=== PATIENT | male | born 1945 | race Caucasian/White ===

== ENCOUNTER 2016-12-23 11:16 | Emergency (ER) | payer MEDICARE, OTHER ==
[2016-12-23 11:27] VITALS: O2SAT 99; BMI 25.0
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
--- NOTE | 2016-12-23 15:06 | MRI ---
PROCEDURE: MRI BRAIN WITHOUT CONTRAST HISTORY: had injury, blurry vision COMPARISON: Noncontrast head CT from 06/26/2015 TECHNIQUE: Multiplanar, multisequence MR images of the brain were obtained without intravenous contrast enhancement. FINDINGS: HEMORRHAGE: None DWI: No evidence of an acute or early subacute infarction. BRAIN PARENCHYMA: There are mild chronic microangiopathic changes. There is no mass, mass effect or abnormal extra-axial fluid collection. The midline sagittal structures are normal. There is no territorial infarction. VENTRICLES: There is moderate age-related global parenchymal volume loss and proportionate enlargement of the ventricles and cortical sulci. CRANIUM: There is normal bone marrow signal pattern. ORBITS: Grossly unremarkable. PARANASAL SINUSES/MASTOIDS: Predominantly clear. VASCULAR SYSTEM: There are normal signal voids in the larger intracranial arteries. OTHER FINDINGS: None. IMPRESSION: 1. No acute intracranial abnormality. 2. Mild chronic microangiopathic changes and moderate age-related global parenchymal volume loss.
[2016-12-23 15:26] VITALS: BP 150/85; PULSE 76; RESP 16; TEMP 98.7
== END 2016-12-23 15:24 | disposition home or self-care (01) ==
LOC: C.ER 11:16
DX: S09.90XA Unspecified injury of head, initial encounter (principal); Y09 Assault by unspecified means; H53.8 Other visual disturbances; I10 Essential (primary) hypertension; E78.00 Pure hypercholesterolemia, unspecified

== ENCOUNTER 2017-03-27 07:46 | Emergency (ER) | payer MEDICARE, OTHER ==
[2017-03-27 07:47] VITALS: BMI 25.0
[2017-03-27 07:54] VITALS: RESP 18; O2SAT 100
[2017-03-27] MEDS ORDERED: Bacitracin Ointment 30 GM TUBE TOP STA (08:10)
[2017-03-27] MEDS ORDERED: Bacitracin 500 Units/gm Oint Foilpak UD ONE (08:19)
--- NOTE | 2017-03-27 08:52 | C.PDOC ---
History Of Present Illness 71 y/o male presents to ED with complaints of left leg pain since yesterday and right toe pain with associated swelling for 1 week. Patient states yesterday around 8am while at work his leg was caught in a "machine." He continued to work but pain persisted which prompted visit to ED today. Denies trauma to the toe, change in sensation, history of gout, fever or any other complaints at this time. Patient is not UTD with Tetanus vaccine. Time Seen by Provider: 03/27/17 07:52 Chief Complaint (Nursing): Lower Extremity Problem/Injury History Per: Patient History/Exam Limitations: no limitations Onset/Duration Of Symptoms: Days Current Symptoms Are (Timing): Still Present Past Medical History Reviewed: Historical Data, Nursing Documentation, Vital Signs Vital Signs: Last Vital Signs Temp 97.8 F 03/27/17 11:10 Pulse 69 03/27/17 11:10 Resp 18 03/27/17 11:10 BP 143/82 03/27/17 11:10 Pulse Ox 100 03/27/17 15:24 - Medical History PMH: Anxiety, Depression, HTN, Hypercholesterolemia Surgical History: Back Surgery Family History: States: No Known Family Hx - Social History Hx Tobacco Use: No Hx Alcohol Use: No (occasional) Hx Substance Use: No - Immunization History Hx Tetanus Toxoid Vaccination: No Hx Influenza Vaccination: No Hx Pneumococcal Vaccination: No Review Of Systems Constitutional: Negative for: Fever, Chills Musculoskeletal: Positive for: Leg Pain, Foot Pain Skin: Negative for: Rash Neurological: Negative for: Weakness, Numbness Physical Exam - Physical Exam Appears: Non-toxic, No Acute Distress Skin: Warm, Dry, Other (Puncture wound to left posterior thigh w/surrounding abrasion) Head: Atraumatic, Normacephalic Eye(s): bilateral: Normal Inspection, EOMI Nose: Normal Oral Mucosa: Moist Neck: Normal ROM, Supple Chest: Symmetrical Respiratory: No Accessory Muscle Use Extremity: Tenderness (To left distal femur and right great toe), No Calf Tenderness, Capillary Refill (<2 sec), No Deformity, Swelling ((+) swelling to left proximal medial knee. (+) Swelling and Erythema to right great toe with (+ ) 0.5 blood blister (+) onychomycosis) Pulses: Left Dorsalis Pedis: Normal, Right Dorsalis Pedis: Normal Neurological/Psych: Oriented x3, Normal Motor, Normal Sensation Gait: Steady ED Course And Treatment O2 Sat by Pulse Oximetry: 100 (RA) Pulse Ox Interpretation: Normal - Other Rad Foot Rt toe X-Ray: Viewed By Me, Read By Radiologist Interpretation: PROCEDURE: Radiographs of the right great toe. TECHNIQUE:: AP radiograph of the right foot, with oblique and lateral view of the right great toe. COMPARISON: None. FINDINGS: BONES: Subcortical tiny cysts accentuated medial 1st interphalangeal joint. Concomitant small erosion 1st proximal phalanx here possible. Bordering faint juxta articular calcification. No fracture. JOINTS: First metatarsal-phalangeal and 1st interphalangeal joint arthrosis. SOFT TISSUES: Normal. OTHER FINDINGS: Clinodactyly 4th and 5th digits. IMPRESSION: No fracture or dislocation. Cystic and possibly erosive arthrosis - 1st digit Left knee X-Ray: Viewed By Me, Read By Radiologist Interpretation: PROCEDURE: Left Knee Radiographs. HISTORY: COMPARISON: Bilateral knee radiographs performed 08/28/15. FINDINGS: BONES: No acute displaced fracture. JOINTS: No dislocation. Chondrocalcinosis, lateral compartment. JOINT EFFUSION: Small to moderate suprapatellar joint effusion. OTHER FINDINGS: Vascular calcifications. IMPRESSION: Small to moderate suprapatellar joint effusion. No acute displaced fracture identified. If symptoms persist, or if there is continued clinical concern, x-ray follow-up in 7-10 days should be considered. Left femur X-Ray: Viewed By Me, Read By Radiologist Interpretation: Indication: Trauma. Left femur radiographs. Comparison: None available. Findings: No acute displaced fracture. No dislocation. Vascular calcifications. Soft tissues appear otherwise unremarkable. No evidence of radiopaque foreign body. Degenerative changes. Chondrocalcinosis, medial lateral compartments. Impression: No acute displaced fracture identified If symptoms persist or if there is continued clinical concern, x-ray follow-up in 7 -10 days should be considered. Progress Note: Femur and Knee xray ordered, Tetanus vaccine administered, Bacitracin apllied,. Podiatry, Dr Yeh, latriciauted pt at bedside who recommends treatment with colchine, NSAIDS, and antibiotics. On re evaluation patient pain is improved. Patient discussed xray results, knee brace applied by RN and pt discharged with papers on Gout and possible risks of infection for puncture wound. Patient advised to follow up with ortho in 1-2 days for wound check or return to ER if symptoms persist or worsen. Disposition - Disposition Referrals: [facility] [Outside] Disposition: HOME/ ROUTINE Disposition Time: 10:03 Condition: STABLE Additional Instructions: Vaya a tory mdico o la clnica en 1-3 darnell sin falta, para mas evaluacin. [place] los medicamentos rhonda indicado. Volver a la kate de emergencia en cualquier momento si los sntomas persisten o empeoran. 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 - Scribe Statement The provider has reviewed the documentation as recorded by the Scribmartin [place] All medical record entries made by the Jean were at my direction and personally dictated by me. I have reviewed the chart and agree that the record accurately reflects my personal performance of the history, physical exam, medical decision making, and the department course for this patient. I have also personally directed, reviewed, and agree with the discharge instructions and disposition.
--- NOTE | 2017-03-27 09:07 | RAD ---
PROCEDURE: Radiographs of the right great toe. TECHNIQUE:: AP radiograph of the right foot, with oblique and lateral view of the right great toe. COMPARISON: None. FINDINGS: BONES: Subcortical tiny cysts accentuated medial 1st interphalangeal joint. Concomitant small erosion 1st proximal phalanx here possible. Bordering faint juxta articular calcification. No fracture. JOINTS: First metatarsal-phalangeal and 1st interphalangeal joint arthrosis. SOFT TISSUES: Normal. OTHER FINDINGS: Clinodactyly 4th and 5th digits. IMPRESSION: No fracture or dislocation Cystic and possibly erosive arthrosis - 1st digit
--- NOTE | 2017-03-27 09:14 | RAD ---
PROCEDURE: Left Knee Radiographs. HISTORY: COMPARISON: Bilateral knee radiographs performed 08/28/15 FINDINGS: BONES: No acute displaced fracture. JOINTS: No dislocation. Chondrocalcinosis, lateral compartment. JOINT EFFUSION: Small to moderate suprapatellar joint effusion. OTHER FINDINGS: Vascular calcifications. IMPRESSION: Small to moderate suprapatellar joint effusion. No acute displaced fracture identified. If symptoms persist, or if there is continued clinical concern, x-ray follow-up in 7-10 days should be considered.
--- NOTE | 2017-03-27 09:25 | RAD ---
Indication: Trauma Left femur radiographs Comparison: None available Findings: No acute displaced fracture. No dislocation. Vascular calcifications. Soft tissues appear otherwise unremarkable. No evidence of radiopaque foreign body. Degenerative changes. Chondrocalcinosis, medial lateral compartments. Impression: No acute displaced fracture identified If symptoms persist or if there is continued clinical concern, x-ray follow-up in 7-10 days should be considered.
--- NOTE | 2017-03-27 09:32 | CP.PCM.CON ---
History of Present Illness - History of Present Illness History of Present Illness: Podiatry Consult Note- Dr. Zepeda 71 yo male patient seen in the ED concerning painful left great toe. Pt says he has noticed pain, swelling and redness to the toe for 1 week in duration. Rates the pain as a 6-7/10 and it bothers him when walking. Denies any numbness or tingling to the lower extremity. Denies any injury to the toe, denies any recent changes in shoe gear or activity. Denies any episodes of this happening in the past. Denies any history of diabetes or gout. Denies taking any pain medication at home. Also complains of fungal toenails which he has had for a while. Denies f/n/v/c/sob/cp/weakness or dizziness at this time. PMH: HTN ALL: PCN Review of Systems - Review of Systems Review of Systems: all systems reviewed and found neg outside HPI Past Patient History - Infectious Disease Hx of Infectious Diseases: None - Past Social History Smoking Status: Never Smoked - CARDIAC Hx Hypercholesterolemia: Yes Hx Hypertension: Yes - PULMONARY Hx Tuberculosis: No - NEUROLOGICAL Hx Seizures: No - HEMATOLOGICAL/ONCOLOGICAL Hx Human Immunodeficiency Virus (HIV): No - MUSCULOSKELETAL/RHEUMATOLOGICAL Hx Falls: No - GENITOURINARY/GYNECOLOGICAL Hx Sexually Transmitted Disorders: No - PSYCHIATRIC Hx Anxiety: Yes Hx Depression: Yes Hx Substance Use: No - SURGICAL HISTORY Hx Surgeries: Yes Other/Comment: herniated disc surgery - ANESTHESIA Hx Anesthesia: Yes Hx Anesthesia Reactions: No Meds Home Medications: Home Medication List Medication Instructions Recorded Confirmed Type Bacitracin OINT 1 applic TP BID #1 tube 03/27/17 Rx Colchicine [Colcrys] 0.6 mg PO DAILY #5 tablet 03/27/17 Rx Doxycycline Hyclate [Doryx] 100 mg PO BID #14 cap 03/27/17 Rx Indomethacin [Indocin] 25 mg PO TID #20 cap 03/27/17 Rx Allergies/Adverse Reactions: Allergies Allergy/AdvReac Type Severity Reaction Status Date / Time Penicillins Allergy RASH Verified 03/27/17 07:51 Physical Exam - Constitutional Appears: Non-toxic, No Acute Distress - Extremities Exam Additional comments: RLE focused exam: VASC- DP/PT pulses are fully palpable (2/4), skin temp is increased over hallux at level of IPJ, cap refill < 3 sec to all digits, non-pitting edema is noted circumferentially to hallux NEURO- gross and protective pedal sensation is intact DERM- small superficial blister noted to dorsal-lat aspect of hallux IPJ (no fluctuance, appears sanguinous in nature), erythema is noted circumferentially to hallux IPJ (no proximal streaking), thickened dystrophic hallux nail noted, no open wounds or lesions appreciated ORTHO- tenderness noted to palpation of medial aspect of hallux IPJ and with ROM , non-tender to palpation or ROM of 1st MTPJ - Neurological Exam Neurological exam: Alert, CN II-XII Intact, Oriented x3 - Psychiatric Exam Psychiatric exam: Normal Affect, Normal Mood Results - Vital Signs Recent Vital Signs: Last Vital Signs Temp 98 F 03/27/17 07:51 Pulse 90 03/27/17 07:51 Resp 18 03/27/17 07:51 BP 144/89 03/27/17 07:51 Pulse Ox 100 03/27/17 09:10 Assessment & Plan - Assessment and Plan (Free Text) Assessment: 71 yo male patient with painful right hallux most likely 2/2 gout (cannot r/o infection) Plan: Pt S&E in ED Plan discussed with attending Dr. Zepeda in detail Right foot x-rays reviewed: small erosive changes noted to medial aspect of hallux proximal phalanx and medial aspect of 1st metatarsal head, as well as distal phalanx of hallux, os interphalangeus is noted sub-IPJ of hallux Uric acid level: 6.1 Recommend anti-inflammatory, colchicine 0.6mg po once daily x 5days, po antibiotics Stable as per podiatry Pt may follow up at [facility] pod[facility]ry clinic ([facility]) with Dr. Zepeda for further foot care prn
[2017-03-27 11:11] VITALS: BP 143/82; PULSE 69; TEMP 97.8
== END 2017-03-27 11:48 | disposition home or self-care (01) ==
LOC: C.ER 07:46
DX: S71.132A Puncture wound without foreign body, left thigh, initial encounter (principal); S80.02XA Contusion of left knee, initial encounter; W31.9XXA Contact with unspecified machinery, initial encounter; Y92.89 Other specified places as the place of occurrence of the external cause; Y99.0 Civilian activity done for income or pay; M10.9 Gout, unspecified

== ENCOUNTER 2017-07-10 10:49 | Emergency (ER) | payer OTHER ==
[2017-07-10 10:49] VITALS: BMI 25.0
[2017-07-10 11:17] LABS: BASO # 0.1 K/uL (0.0-0.2); BASO % 1.6 % (0.0-2.0); EOS # 0.1 K/uL (0.0-0.7); HEMOGLOBIN 13.9 g/dL (12.0-18.0); LYMPH # 2.1 K/uL (1.0-4.3); LYMPH % 42.9 % (20.0-40.0); MEAN CELL VOLUME 91.1 fL (80.0-94.0); MEAN CORPUSCULAR HEMOGLOBIN 31.4 pg (27.0-31.0); MEAN CORPUSCULAR HGB CONC 34.5 g/dL (33.0-37.0); MEAN PLATELET VOLUME 6.5 fL (7.2-11.7); MONO # 0.5 K/uL (0.0-0.8); MONO % 10.4 % (0.0-10.0); NEUT # 2.1 K/uL (1.8-7.0); NEUT % 42.1 % (50.0-75.0); RBC 4.42 Mil/uL (4.40-5.90); RED CELL DISTRIBUTION WIDTH 15.3 % (11.5-14.5); WHITE BLOOD COUNT 4.9 K/uL (4.8-10.8)
[2017-07-10 11:32] LABS: ALB/GLOB RATIO 1.3 (1.0-2.1); ALBUMIN 4.5 g/dL (3.5-5.0); ALT/SGPT 15 U/L (21-72); AST/SGOT 32 U/L (17-59); BLOOD UREA NITROGEN 11 mg/dL (9-20); CALCIUM 8.7 mg/dl (8.6-10.4); GFR AFRICAN-AMERICAN > 60; GFR NON-AFRICAN AMERICAN > 60
[2017-07-10 11:41] LABS: ACETAMINOPHEN < 10.0 ug/mL (10.0-30.0); SALICYLATE < 1.0 mg/dL 1
--- NOTE | 2017-07-10 12:20 | C.PDOC ---
History Of Present Illness <Kathrine Price - Last Filed: 07/10/17 18:43> <Delon Valdez - Last Filed: 07/11/17 05:33> <Jo Dan A - Last Filed: 07/11/17 10:56> 71-year-old male, presents to the emergency department with complaints of suicidal and homicidal ideation. Patient was drinking, and went to police station, stating he wants someone to hit him, or he wants to hit someone. Denies any physical complaints at this time, (Kathrine Price) History Per: Patient History/Exam Limitations: no limitations Current Symptoms Are (Timing): Still Present <Kathrine Price - Last Filed: 07/10/17 18:43> <Delon Valdez - Last Filed: 07/11/17 05:33> <Jo Dan A - Last Filed: 07/11/17 10:56> Time Seen by Provider: 07/10/17 10:59 Chief Complaint (Nursing): Psychiatric Evaluation Past Medical History Reviewed: Historical Data, Nursing Documentation, Vital Signs - Medical History PMH: Anxiety, Depression, HTN, Hypercholesterolemia Surgical History: Back Surgery Family History: States: No Known Family Hx - Social History Hx Tobacco Use: No Hx Alcohol Use: No (occasional) Hx Substance Use: No - Immunization History Hx Tetanus Toxoid Vaccination: No Hx Influenza Vaccination: No Hx Pneumococcal Vaccination: No <Kathrine Price - Last Filed: 07/10/17 18:43> Vital Signs: Last Vital Signs Temp 98.5 F 07/11/17 08:34 Pulse 84 07/11/17 10:14 Resp 16 07/11/17 10:14 BP 164/84 H 07/11/17 10:14 Pulse Ox 96 07/11/17 10:14 Review Of Systems Constitutional: Negative for: Fever Respiratory: Negative for: Shortness of Breath Gastrointestinal: Negative for: Vomiting Psych: Positive for: Suicidal ideation (+HI) <Kathrine Price - Last Filed: 07/10/17 18:43> Physical Exam - Physical Exam Appears: Non-toxic, No Acute Distress Skin: Normal Color, Warm, Dry, No Rash Head: Normacephalic Nose: Normal Oral Mucosa: Moist Lips: Normal Appearing Neck: Normal ROM Cardiovascular: Rhythm Regular, No Murmur Respiratory: Normal Breath Sounds, No Accessory Muscle Use Extremity: Normal ROM, No Deformity, No Swelling Neurological/Psych: Oriented x3, Normal Speech <Kathrine Price - Last Filed: 07/10/17 18:43> ED Course And Treatment - Laboratory Results Result Diagrams: 07/10/17 11:11 07/10/17 11:11 ECG: Interpreted By Me, Viewed By Me ECG Rhythm: Sinus Rhythm ECG Interpretation: No Acute Changes Rate From EC O2 Sat by Pulse Oximetry: 97 (RA) Pulse Ox Interpretation: Normal - Other Rad CXR X-Ray: Viewed By Me, Read By Radiologist Interpretation: Accession No. : [id number]. Patient Name / ID : MALVIN Reyes / [id number]. Exam Date : 07/10/2017 11:03:28 ( Approved ). Study Comment : Sex / Age : M / 71Y. Creator : Ulisses Wayne MD. Dictator : Ulisses Wayne MD. Language Interpreter : Supervisor Contingents : Ulisses Wayne MD. Approver2 : Report Date : 07/10/2017 12:21:17. My Comment : . PROCEDURE: CHEST RADIOGRAPH, 1 VIEW. HISTORY: Detox/Psy. COMPARISON: 02/24/2014. FINDINGS: LUNGS: Clear. PLEURA: No pneumothorax or pleural fluid seen. CARDIOVASCULAR: Normal. OSSEOUS STRUCTURES: No significant abnormalities. VISUALIZED UPPER ABDOMEN: Normal. OTHER FINDINGS: None. IMPRESSION: No active disease. Progress Note: Patient is medically cleared, he was observed in ED for sobriety. Patient was seen by balcony worker, he still expresses suicidal and homicidal ideation. Howver he refused to sign paperwork for an admission. Patient is now is waiting for [facility] screener evaluation. <Kathrine Price - Last Filed: 07/10/17 18:43> - Laboratory Results Result Diagrams: 07/10/17 11:11 07/10/17 11:11 <Delon Valdez - Last Filed: 07/11/17 05:33> - Laboratory Results Result Diagrams: 07/10/17 11:11 07/10/17 11:11 <SyJosé MiguelJo A - Last Filed: 07/11/17 10:56> Medical Decision Making <Kathrine Price - Last Filed: 07/10/17 18:43> <Delon Valdez - Last Filed: 07/11/17 05:33> <SyJosé Miguel garcíaia A - Last Filed: 07/11/17 10:56> Medical Decision Making: Patient was screened by [facility] and is waiting for a bed to open up at [facility] (Delon Valdez) Disposition - Disposition Disposition Time: 18:48 <Kathrine Price - Last Filed: 07/10/17 18:43> <Delon Valdez - Last Filed: 07/11/17 05:33> Counseled Patient/Family Regarding: Studies Performed, Diagnosis, Need For Followup - Disposition Disposition Time: 11:00 <Jo Dan A - Last Filed: 07/11/17 10:56> - Disposition Referrals: [facility] at [facility] [Outside] Disposition: HOME/ ROUTINE Condition: STABLE Forms: [facility] (C[place]odian) - Clinical Impression Clinical Impression: Alcohol intoxication - Scribe Statement The provider has reviewed the documentation as recorded by the Scribe (Arpit Conti) <Kathrine Price - Last Filed: 07/10/17 18:43> <Delon Valdez - Last Filed: 07/11/17 05:33> <Jo Dan A - Last Filed: 07/11/17 10:56> - Scribe Statement All medical record entries made by the Scribe were at my direction and personally dictated by me. I have reviewed the chart and agree that the record accurately reflects my personal performance of the history, physical exam, medical decision making, and the department course for this patient. I have also personally directed, reviewed, and agree with the discharge instructions and disposition. (Kathrine Price) Physician Patient Turnover Patient Signed Over To: Delon Valdez Handoff Comments: awaiting [facility] screener evaluation <Kathrine Price - Last Filed: 07/10/17 18:43> Addendum <Kathrine Price - Last Filed: 07/10/17 18:43> <Jo Dan - Last Filed: 07/11/17 10:56> Addendum: 07/11/17 10:54 Patient has been seen by Dr. Reid in the ED and cleared for discharge from psychiatric standpoint. Patient is currently AAOx3, calm and cooperative, clinically sober. Will discharge. (Jo Dan)
--- NOTE | 2017-07-10 12:23 | RAD ---
PROCEDURE: CHEST RADIOGRAPH, 1 VIEW HISTORY: Detox/Psy COMPARISON: 02/24/2014 FINDINGS: LUNGS: Clear. PLEURA: No pneumothorax or pleural fluid seen. CARDIOVASCULAR: Normal. OSSEOUS STRUCTURES: No significant abnormalities. VISUALIZED UPPER ABDOMEN: Normal. OTHER FINDINGS: None. IMPRESSION: No active disease.
[2017-07-10 12:50] LABS: SQUAMOUS EPITHIAL < 1 /hpf (0-5); URINE BACTERIA RARE (<OCC); URINE BILIRUBIN NEGATIVE (NEGATIVE); URINE BLOOD 1+ (NEGATIVE); URINE CLARITY Clear (Clear); URINE COLOR Yellow (YELLOW); URINE GLUCOSE (UA) NORMAL (Normal); URINE LEUKOCYTE ESTERASE NEG Leu/uL (Negative); URINE PROTEIN NEGATIVE (NEGATIVE); URINE UROBILINOGEN NORMAL mg/dL (0.2-1.0)
[2017-07-10 13:16] LABS: BARBITURATES, UR NEGATIVE (NEGATIVE); BENZODIAZEPINES, UR NEGATIVE (NEGATIVE); OPIATES, UR NEGATIVE (NEGATIVE); PHENCYCLIDINE, UR NEGATIVE (NEGATIVE)
[2017-07-11 08:35] VITALS: TEMP 98.5
[2017-07-11 10:14] VITALS: BP 164/84; PULSE 84; RESP 16; O2SAT 96
--- NOTE | 2017-07-11 13:48 | PCM.PSYCH ---
Initial Psychiatric Evaluation - Initial Psychiatric Evaluation Type of Admission: Voluntary Legal Status: Capacity Chief Complaint (in patient's own words): "I am OK" History of Present Illness and Precipitating Events: Pt is seen with Dr. Gonzalez who translated He is a 71 y/o [place]-only LM, with children, employed and domiciled He is for alcohol intoxication and suicidal statements He refused admission and screened by [facility] However, he is now sober, and denies any SI, SP, HI/HP, AVH/del and he is AOX3, not confused, calm, very pleasant Denies drug use Admits to feeling down bc of ex-'s cancer but will go on and help her Future-oriented Minimizes alcohol problem even though he has been drinking for a long time Past medical and psych is non-contributory No family psych Past Psychiatric History - Past Psychiatric History Previous Treatment History: None Pertinent Medical Hx (Current Medical&Sleep Prob, Allergies): Allergies Allergy/AdvReac Type Severity Reaction Status Date / Time Penicillins Allergy RASH Verified 07/10/17 11:01 Lisinopril 20 mg PO DAILY 10/17/14 Pravastatin Sodium 20 mg PO DAILY 08/28/15 Bacitracin OINT 1 applic TP BID #1 tube 03/27/17 Colchicine [Colcrys] 0.6 mg PO DAILY #5 tablet 03/27/17 Doxycycline Hyclate [Doryx] 100 mg PO BID #14 cap 03/27/17 Indomethacin [Indocin] 25 mg PO TID #20 cap 03/27/17 Review of Systems - Psychiatric Psychiatric: Abnormal Sleep Pattern, Anxiety, Difficulty Concentrating. absent : Hallucinations, Homicidal Ideation, Suicidal Ideation Mental Status Examination - Personal Presentation Personal Presentation: Looks stated age - Affect Affect: Constricted - Motor Activity Motor Activity: Calm - Reliability in Providing Information Reliability in Providing Information: Good - Speech Speech: Organized - Mood Mood: Depressed - Formal Thought Process Formal Thought Process: No Impairment - Cognitive Functions Orientation: Person, Place, Situation, Time Sensorium: Alert Attention/Concentration: Attentive Estimate of Intelligence: Average Judgement: Intact, as evidence by: Insight regarding need for hospitalization Memory: Recent intact, as evidence by: Ability to recall events of the day, Remote impaired as evidenced by: Inability to recall historical events - Risk Risk: Diminished functioning - Strength & Assets Inventory Strength & Assets Inventory: Family support, Employment history, Cooperative - Limitations Limitations: Other DSM 5 DX - DSM 5 DSM 5 Diagnosis: Depressive d/o - unspecified Alcohol use d/o - severe - Recommended/Plan of Treatment Treatment Recommendations and Plan of Treatment: Cleared for d/c AA and IOP recommended [facility] and [facility] recommended Responded well to support and reassurance
--- NOTE | 2017-07-13 17:20 | CARD ---
APPROVED REPORT EKG Measurement Heart [id number] <Conclusion> Normal sinus rhythm Normal ECG
== END 2017-07-11 11:13 | disposition home or self-care (01) ==
LOC: C.ER 10:49
DX: F32.9 Major depressive disorder, single episode, unspecified (principal); F10.129 Alcohol abuse with intoxication, unspecified; Y90.8 Blood alcohol level of 240 mg/100 ml or more

== ENCOUNTER 2018-04-27 07:10 | Emergency (ER) | payer MEDICARE ==
[2018-04-27 07:11] VITALS: BMI 25.0
--- NOTE | 2018-04-27 07:41 | C.PDOC ---
History Of Present Illness 72 year old male presents to the ED for evaluation of worsening right knee pain. The patient reports pain is exacerbated by walking. He notes history of injury to the right knee, no recent injuries. Denies swelling, redness, numbness, tingling, and any other associated symptoms. Time Seen by Provider: 04/27/18 07:34 Chief Complaint (Nursing): Lower Extremity Problem/Injury History Per: Patient History/Exam Limitations: no limitations Onset/Duration Of Symptoms: Days Current Symptoms Are (Timing): Still Present - Knee Description Of Injury: denies: Struck With Object, Twisted Past Medical History Reviewed: Historical Data, Nursing Documentation, Vital Signs Vital Signs: Last Vital Signs Temp 97.6 F 04/27/18 07:16 Pulse 80 04/27/18 07:38 Resp 14 04/27/18 07:38 BP 162/101 H 04/27/18 07:38 Pulse Ox 97 04/27/18 07:38 - Medical History PMH: Anxiety, Depression, HTN, Hypercholesterolemia Denies: Diabetes, Hepatitis, HIV, Seizures, Sexually Transmitted Disease Surgical History: Back Surgery Family History: States: Unknown Family Hx - Social History Hx Tobacco Use: No Hx Alcohol Use: Yes (occasional) Hx Substance Use: No - Immunization History Hx Tetanus Toxoid Vaccination: No Hx Influenza Vaccination: No Hx Pneumococcal Vaccination: No Review Of Systems Except As Marked, All Systems Reviewed And Found Negative. Musculoskeletal: Positive for: Other (right knee pain. ) Neurological: Negative for: Weakness, Numbness, Incoordination, Other ((-) redness. (-) swelling. ) Physical Exam - Physical Exam Appears: Non-toxic, No Acute Distress Skin: Warm, Dry Head: Atraumatic, Normacephalic Eye(s): bilateral: Normal Inspection Oral Mucosa: Moist Neck: Normal ROM, Supple Chest: Symmetrical, No Deformity Cardiovascular: Rhythm Regular, No Murmur Respiratory: Normal Breath Sounds, No Rales, No Rhonchi, No Wheezing Gastrointestinal/Abdominal: Normal Exam, Soft, No Tenderness Extremity: Normal ROM, Tenderness (diffuse tenderness over the right knee. ), No Deformity, No Swelling Neurological/Psych: Oriented x3, Normal Speech, Normal Cognition ED Course And Treatment ECG: Interpreted By Me, Viewed By Me ECG Rhythm: Sinus Rhythm Rate From EC O2 Sat by Pulse Oximetry: 97 (RA) Pulse Ox Interpretation: Normal - Other Rad Right knee xray X-Ray: Interpreted by Me, Viewed By Me Interpretation: arthritic changes, no fractures, no dislocation. Medical Decision Making Medical Decision Making: Initial plan: -RT Knee x-ray Progress/Update: Patient remained stable in the ED. Results discussed with the patient. Prescribed Tramadol. Pt advised to return if symptoms worsen. Disposition Counseled Patient/Family Regarding: Studies Performed, Diagnosis, Need For Followup - Disposition Referrals: [facility] at [facility] [Outside] Disposition: HOME/ ROUTINE Disposition Time: 07:50 Condition: STABLE Prescriptions: Colchicine 0.6 mg PO TID 1 Days tablet Lisinopril [Zestril] 20 mg PO DAILY 30 Days tab Instructions: Osteoarthritis, High Blood Pressure in Adults Forms: [facility] (Polish), Gen Discharge Inst Albanian - POA Present On Arrival: None - Clinical Impression Clinical Impression: Arthritis, Hypertension - Scribe Statement The provider has reviewed the documentation as recorded by the Scribe (Dorina Ribeiro) Provider Attestation: All medical record entries made by the Scribe were at my direction and personally dictated by me. I have reviewed the chart and agree that the record accurately reflects my personal performance of the history, physical exam, [facility] decision making, and the department course for this patient. I have also personally directed, reviewed, and agree with the discharge instructions and disposition.
[2018-04-27 08:08] VITALS: O2SAT 97
[2018-04-27 08:18] VITALS: BP 148/87; PULSE 71; RESP 16; TEMP 98.1
--- NOTE | 2018-04-27 15:34 | RAD ---
Date of service: 04/27/2018 PROCEDURE: Right Knee Radiographs. HISTORY: pain COMPARISON: Comparison made with prior radiographs of the right knee dated 08/28/2015 FINDINGS: BONES: Normal. No fracture. JOINTS: Moderate to fairly significant tricompartmental degenerative osteoarthritis. Note also made of chondrocalcinosis lateral compartment; rule out CPPD. Prominent calcification within the lateral joint space margin possibly along the lateral margin of the meniscus or in the lateral collateral ligament region. JOINT EFFUSION: None. OTHER FINDINGS: None. IMPRESSION: No acute fractures. Tricompartmental degenerative osteoarthritis with underlying chondrocalcinosis; rule out CPPD. Prominent calcification within the lateral joint space margin possibly along the lateral margin of the meniscus or in the lateral collateral ligament region.
--- NOTE | 2018-04-29 14:23 | CARD ---
APPROVED REPORT Date of service: 04/27/2018 EKG Measurement Heart [id number] <Conclusion> Normal sinus rhythm Normal ECG
== END 2018-04-27 08:40 | disposition home or self-care (01) ==
LOC: C.ER 07:10
DX: M17.11 Unilateral primary osteoarthritis, right knee (principal); I10 Essential (primary) hypertension